=== PATIENT | female | born 1995 | race African-American/Black ===

== ENCOUNTER 2022-07-03 22:29 | Emergency (ER) | payer SELFPAY ==
[~2022-07-03] VITALS: Ht 160 cm; Wt 118.2 kg
[2022-07-03 22:30] VITALS: BP 133/76
[2022-07-03] MEDS ORDERED: IBUP200C27 PO (22:39)
[2022-07-05] MEDS ORDERED: LIDO2SOL17 PO (22:08)
[2022-07-05] MEDS ORDERED: AMOX875T2 PO (22:08)
[2022-07-05] MEDS ORDERED: HYDR-3713 PO (22:08)
== END 2022-07-04 03:37 | disposition left against medical advice (07) ==
LOC: M ED 22:29
DX: Z53.21 Procedure and treatment not carried out due to patient leaving prior to being seen by health care provider (principal)

== ENCOUNTER 2022-07-05 20:17 | Emergency (ER) | payer SELFPAY ==
[~2022-07-05] VITALS: Ht 160 cm; Wt 100.2 kg
[~2022-07-05 20:17] MED LIST: IBUP200C27 PO
[2022-07-05 20:34] VITALS: BP 131/68
[2022-07-05] MEDS ORDERED: AUGMENTIN 875 MG TAB PO ONE (22:05)
[2022-07-05] MEDS ORDERED: LIDOCAINE VISCOUS 2% SOLN 15ML UDC SSP ONE (22:05)
[2022-07-05] MEDS ORDERED: KETOROLAC 60MG 2ML VIAL IM ONE (22:05)
[2022-07-05] MEDS ORDERED: HYDR-3713 PO (22:08)
[2022-07-05] MEDS ORDERED: AMOX875T2 PO (22:08)
[2022-07-05] MEDS ORDERED: LIDO2SOL17 PO (22:08)
== END 2022-07-05 22:32 | disposition home or self-care (01) ==
LOC: M ED 20:17 → EDBD 20:17 → M ED 22:32
DX: K08.89 Other specified disorders of teeth and supporting structures (principal); R20.2 Paresthesia of skin; G50.1 Atypical facial pain; F17.200 Nicotine dependence, unspecified, uncomplicated
CPT/HCPCS: 96372; 99283; J1885